=== PATIENT | male | born 1960 | race Caucasian/White ===

== ENCOUNTER 2020-10-03 19:03 | Emergency (ER) | payer OTHER, SELFPAY ==
[2020-10-03 19:10] VITALS: BP 172/100; PULSE 80; RESP 18; TEMP 37.2; O2SAT 98; BMI 30.5
--- NOTE | 2020-10-03 19:33 | DI.RAD.S_ITS ---
PROCEDURE: XR FOOT RT MIN 3V INDICATIONS: diabetic with wound on bottom of right foot. TECHNIQUE: 3 views of the foot were acquired. COMPARISON: None. FINDINGS: Bones: Extensive orthopedic hardware including the calcaneus, 5th metatarsal, and 1st metatarsal. No evidence of hardware failure or loosening. No plain film evidence of osteomyelitis. No fractures or dislocations. No suspicious bony lesions. Soft tissues: No tibiotalar joint effusion. Achilles tendon appears normal. IMPRESSION: No plain film evidence of osteomyelitis. No evidence of acute bony abnormality of the right foot. Dictated by: Kehinde Do M.D. on 10/03/2020 at 20:29 Approved by: Kehinde Do M.D. on 10/03/2020 at 20:30
== END 2020-10-03 20:46 | disposition left against medical advice (07) ==
PROVIDERS: Emergency Provider Emergency Medicine
DX: L98.9 Disorder of the skin and subcutaneous tissue, unspecified (principal)
CPT/HCPCS: 73630; 99281

== ENCOUNTER → 2021-12-15 12:24 | Outpatient (ROUT) | payer OTHER, SELFPAY ==
[2021-12-15 13:46] LABS: COVID19 -Nasal RAPID POSITIVE (Negative)
== END ==
PROVIDERS: Visit Provider Family Medicine
DX: U07.1 COVID-19 (principal)
CPT/HCPCS: 87635

== ENCOUNTER → 2022-05-15 12:23 | Outpatient (CLI) | payer OTHER, SELFPAY ==
--- NOTE | 2022-05-15 | DI.RAD.S_ITS ---
PROCEDURE: XR CHEST 2V INDICATIONS: COUGH TECHNIQUE: 2 views of the chest were acquired. COMPARISON: None. FINDINGS: Surgical changes and devices: None. Lungs and pleura: Lungs are clear considering body habitus and reduced inspiratory volume. No pleural effusions or pneumothorax. Mediastinum: Mediastinal contours are normal. Heart size is normal. Bones and chest wall: No suspicious bony abnormalities. Soft tissues appear unremarkable. IMPRESSION: Reduced inspiratory volume, no definite pneumonia or mass lesion seen. Dictated by: Juan Francisco Cuenca M.D. on 05/15/2022 at 13:16 Approved by: Juan Francisco Cuenca M.D. on 05/15/2022 at 13:16
== END ==
PROVIDERS: PCP Family Medicine; Referring Provider Family Medicine; Visit Provider Family Medicine
DX: R05.9 Cough, unspecified (principal)
CPT/HCPCS: 71046

== ENCOUNTER → 2023-06-16 08:49 | Outpatient (CLI) | payer OTHER, SELFPAY ==
--- NOTE | 2023-06-16 08:51 | DI.CT.S_ITS ---
PROCEDURE: CT KIDNEY URETER BLADDER (KUB) INDICATIONS: ACUTE R/SIDE LBP/MICROSCOPIC HEMATURIA TECHNIQUE: Axial sections were acquired from the lung bases to the pubic symphysis. Coronal and sagittal reformats were performed. For radiation dose reduction, the following was used: automated exposure control, adjustment of mA and/or kV according to patient size. COMPARISON: None. FINDINGS: Image quality: Diagnostic. Lower Chest: No significant findings. URINARY: Right Kidney: No stones or hydronephrosis. Right Ureter: No hydroureter. Left Kidney: No stones or hydronephrosis. Left Ureter: No hydroureter. Bladder: Two right lateral bladder wall diverticuli, the largest of which measures 11 x 4.8 cm with multiple dependent stones with Hounsfield unit of 283. Tiny fundal diverticulum Circumferential bladder wall thickening. ABDOMEN: Liver: No contour-deforming solid mass. Subcentimeter calcified granuloma in the left hepatic lobe. Gallbladder: Cholelithiasis without acute cholecystitis. Biliary ducts: No biliary dilation. Pancreas: No ductal dilation. Spleen: Size is within normal limits. Multiple subcentimeter calcified granulomas, likely sequela of prior granulomatous infection. Adrenal Glands: No adrenal nodules. Stomach and Bowel: No hiatal hernia. Stomach appears grossly normal. Small and large bowel is normal in caliber, without obstruction. Normal appendix (2/47). Sigmoid and scattered colonic diverticulosis, without diverticulitis. No pneumatosis, pneumoperitoneum or portal venous gas. Peritoneum: No abnormal intraperitoneal fluid. No free air. Ventral Wall: Tiny fat containing umbilical hernia. Abdominal Nodes: No enlarged retroperitoneal or mesenteric lymph nodes. Vessels: Aorta and inferior vena cava are normal in size. PELVIS: Pelvic Organs: Severe prostatomegaly measuring 7.2 cm. Pelvic Nodes: Unremarkable. Miscellaneous: No inguinal hernias are seen. Bones: No acute fractures. No aggressive appearing lytic or blastic osseous lesions. Mild multilevel degenerative changes of the spine. IMPRESSION: 1. Two right lateral bladder wall diverticuli and tiny fundal diverticulum, the largest of which measures 11 x 4.8 cm with multiple dependent stones. Recommend Urology consultation. 2. Severe prostatomegaly with circumferential bladder wall thickening, likely sequela of chronic bladder outlet obstruction. 3. No hydronephrosis or nephrolithiasis bilaterally. 4. Sigmoid and colonic diverticulosis, without diverticulitis. Dictated by: Pepito Hicks M.D. on 06/16/2023 at 11:37 Approved by: Pepito Hicks M.D. on 06/16/2023 at 11:49
== END ==
LOC: CT 08:50
PROVIDERS: PCP Family Medicine; Referring Provider Family Medicine; Visit Provider Family Medicine
DX: N32.3 Diverticulum of bladder (principal); R31.29 Other microscopic hematuria; K57.30 Diverticulosis of large intestine without perforation or abscess without bleeding; N40.0 Benign prostatic hyperplasia without lower urinary tract symptoms; E11.65 Type 2 diabetes mellitus with hyperglycemia; M54.50 Low back pain, unspecified
CPT/HCPCS: 74176

== ENCOUNTER 2023-09-26 13:05 | Emergency (ER) | payer OTHER, SELFPAY ==
[2023-09-26 13:27] VITALS: BP 217/101; PULSE 59; RESP 16; TEMP 37.3; O2SAT 98; BMI 30.9
--- NOTE | 2023-09-26 13:33 | DI.RAD.S_ITS ---
PROCEDURE: XR CHEST 1V INDICATIONS: chest pain TECHNIQUE: One view of the chest was acquired. COMPARISON: [facility], CR, XR CHEST 2V, 05/15/2022, 12:25. FINDINGS: Surgical changes and devices: None. Lungs and pleura: Lungs are clear. No pleural effusions or pneumothorax. Mediastinum: Mediastinal contours appear normal. Heart size is normal. Bones and chest wall: No suspicious bony lesions. Overlying soft tissues appear unremarkable. IMPRESSION: No acute cardiopulmonary abnormality is seen. Dictated by: Charles Ayala M.D. on 09/26/2023 at 12:59 Approved by: Charles Ayala M.D. on 09/26/2023 at 13:08
--- NOTE | 2023-09-26 13:43 | ED_ITS ---
HPI - Chest Pain General Chief Complaint: Chest Pain Stated Complaint: high bp Time Seen by Provider: 09/26/23 13:43 Source: patient Mode of arrival: Ambulatory Limitations: no limitations History of Present Illness HPI narrative: Patient 63-year-old male history of hypertension type 2 diabetes urinary retention and bladder stones presenting today with elevated blood pressure. He reports that they increased his lisinopril to twice a day not too long ago and he noticed his blood pressure started going up. Over the last 3 days he has had increasing shortness of breath with exertion. He denies any significant headache or chest pain. He reports he has a 20 point difference between his right arm and left arm in his blood pressures. He had no back pain. Left leg is swollen but always more swollen after multiple foot surgeries. Fever chills abdominal pain nausea or vomiting. Related Data Home Medications Medication Instructions Recorded Confirmed dulaglutide 3 mg/0.5 mL 3 mg SUBCUT 09/26/23 subcutaneous pen injector (Trulicity) lisinopril 10 mg tablet 10 mg PO DAILY 09/26/23 09/26/23 metformin 500 mg tablet,extended 500 mg PO BID 09/26/23 09/26/23 release 24 hr Allergies Allergy/AdvReac Type Severity Reaction Status Date / Time Sulfa (Sulfonamide AdvReac Gastrointestinal Verified 09/26/23 13:31 Antibiotics) Upset Patient History Medical History Diabetes High blood pressure Social History Smoking Status: Never smoker Smoking Status: Never smoker Substance Use Type: does not use Exam Initial Vital Signs Initial Vital Signs: Vital Signs Temperature 99.2 F 09/26/23 13:27 Pulse Rate 59 L 09/26/23 13:27 Respiratory Rate 16 09/26/23 13:27 Blood Pressure 217/101 H 09/26/23 13:27 Pulse Oximetry 98 09/26/23 13:27 Oxygen Delivery Method Room Air 09/26/23 13:27 GENERAL: Alert very pleasant 63-year-old male and in no acute distress. HEENT: Head atraumatic,EOMI, pupils reactive, face symmetric, moist mucous membranes CARDIOVASCULAR: Regular rate and rhythm without murmurs, rubs or gallops. RESPIRATORY: Breath sounds equal bilaterally, no wheezes rales or rhonchi. ABDOMEN: Soft, nontender. Normoactive bowel sounds all 4 quadrants. No guarding or rebound. EXTREMITIES: Normal range of motion, no clubbing. Left leg scar noted compression socks slightly more edematous +1 edema then Neurovascularly intact NEUROLOGICAL: Alert and oriented x4.Normal gait and speech. Cranial nerves II through XII grossly intact. SKIN: Warm, dry, no laceration, no petechiae, no rashes or lesions. Course Orders Ordered: ED Orders 09/26/23 13:33 XR chest 1V Stat EKG-12 Lead Stat 09/26/23 14:38 BNP [NT-proBNP (BNP-Adult 18+)] Stat Complete Blood Count AUTO DIFF Stat Comprehensive Metabolic Panel Stat D Dimer Stat Lipase Stat Troponin & CK Cardiac Panel Stat Vital Signs Vital signs: Vital Signs - 8 hr 09/26/23 13:27 09/26/23 14:30 09/26/23 14:31 Temperature 99.2 F Pulse Rate 59 L 61 Respiratory Rate 16 12 Blood Pressure 217/101 H 195/91 H Pulse Oximetry 98 96 Oxygen Delivery Method Room Air 09/26/23 14:31 09/26/23 15:00 09/26/23 15:00 Temperature Pulse Rate 69 52 L Respiratory Rate 20 14 Blood Pressure 193/89 H Pulse Oximetry 96 97 Oxygen Delivery Method Room Air 09/26/23 15:30 09/26/23 15:30 09/26/23 15:49 Temperature Pulse Rate 66 52 L Respiratory Rate 24 15 Blood Pressure 216/116 H Pulse Oximetry Oxygen Delivery Method 09/26/23 15:49 Temperature Pulse Rate Respiratory Rate Blood Pressure 235/107 H Pulse Oximetry Oxygen Delivery Method MDM - Chest Pain Lab Data 09/26/23 14:38 09/26/23 14:38 Labs: Lab Results 09/26/23 Range/Units 14:38 WBC 6.8 (4.5-11.0) X10^3/uL RBC 5.01 (4.5-5.9) X10^6/uL Hgb 13.9 (13.5-17.5) g/dL Hct 41.9 (41-53) % MCV 83.6 (80-100) fL MCH 27.7 (26-34) PG MCHC 33.1 (30-36) % RDW 16.1 H (11.6-14.8) % Plt Count 400 (150-400) X10^3/uL Neut % (Auto) 72.6 (50-75) % Lymph % (Auto) 20.0 L (25-40) % Dod[place]idge % (Auto) 5.2 (3-14) % Eos % (Auto) 1.5 L (2-4) % Baso % (Auto) 0.7 (0-2) % Neut # (Auto) 5000 (6563-0617) /uL Lymph # (Auto) 1400 (3619-2681) /uL Dod[place]idge # (Auto) 400 (0-900) /uL Eos # (Auto) 100 (0-450) /uL Baso # (Auto) 0 (0-100) /uL D-Dimer 597 H (<500) ng/ml Sodium 140 (137-145) mmol/L Potassium 5.1 (3.4-5.1) mmol/L Chloride 108 H (98-107) mmol/L Carbon Dioxide 25 (22-32) mmol/L BUN 35 H (9-20) mg/dL Creatinine 1.19 (0.66-1.25) mg/dL Estimated GFR > 60 (>60) mL/min BUN/Creatinine Ratio 29.4 H (6-22) Glucose 134 H (80-110) mg/dL Calcium 9.8 (8.4-10.2) mg/dL Total Bilirubin 0.7 (0.2-1.3) mg/dL AST 33 (17-59) IU/L ALT 27 (<50) IU/L Alkaline Phosphatase 82 (38-126) U/L Total Creatine Kinase 193 H (55-170) U/L Troponin I < 0.012 (0.01-0.034) ng/mL NT-Pro-B Natriuret Pep 78 (<125) pg/mL Total Protein 7.7 (6.3-8.2) g/dL Albumin 4.4 (3.5-5.0) g/dL Globulin 3.3 (1.7-4.1) g/dL Albumin/Globulin Ratio 1.3 (1.0-2.8) Lipase 301 H (23-300) U/L Imaging Data Chest x-ray: Radiologist's Impression: PROCEDURE: XR CHEST 1V INDICATIONS: chest pain TECHNIQUE: One view of the chest was acquired. COMPARISON: [facility], CR, XR CHEST 2V, 05/15/2022, 12:25. FINDINGS: Surgical changes and devices: None. Lungs and pleura: Lungs are clear. No pleural effusions or pneumothorax. Mediastinum: Mediastinal contours appear normal. Heart size is normal. Bones and chest wall: No suspicious bony lesions. Overlying soft tissues appear unremarkable. IMPRESSION: No acute cardiopulmonary abnormality is seen. Dictated by: Charles Ayala M.D. on 09/26/2023 at 12:59 Approved by: Cahrles Ayala M.D. on 09/26/2023 at 13:08 ECG Data Attestation: I personally reviewed and interpreted this ECG as follows: Prior ECG tracings: not available for review Interpretation: Normal sinus rhythm rate 50 AL interval 150 QRS [address] changes no T- wave inversions no Q-waves MDM Narrative Medical decision making narrative: Patient 63-year-old male history of hypertension presenting today with elevated blood pressure and increasing shortness of breath. He is noted to have pretty pressure here. He reports difference blood pressure in his arms but is not having any sort back pain or chest pain. Blood work has been reviewed he has no evidence of end-organ damage, no anemia TON or electrolyte abnormality has a negative troponin. D-dimer is noted to be 597. BNP is 78. Chest x-ray has been reviewed no acute cardiopulmonary process EKG no acute cardiopulmonary process sinus bradycardia heart rate 50 no priors to compare Patient reports that he does have low heart rate and is relatively asymptomatic. He has not having any chest pain or shortness of breath here in the ED he was mostly worried about his blood pressure which continues to be elevated. At this time I encouraged him to follow-up with PCP monitor blood pressure at home he will likely need further medication. D-dimer was noted to be slightly elevated 597 it does correct with age she has not hypoxic or tachycardic really think unlikely to be a pulmonary embolism. Also dissection was considered however without significant back pain or chest pain I would think unlikely. Discharge Plan Departure Patient Disposition: Home Clinical Impression: Hypertension Instructions: High Blood Pressure Activity Restrictions/Additional Instructions: *You have been diagnosed with hypertension *What to do: At this time please monitor blood pressure at home. I suspect that you will need further blood pressure medication. *Continue to take medications as directed *Follow up with your primary care provider in 2-3 days or call [phone] *Return to ER if you should have increasing chest pain shortness of breath weakness or any new, worsening or concerning symptoms Prescriptions: No Action lisinopril 10 mg tablet 10 mg PO DAILY metformin 500 mg tablet extended release 24 hr 500 mg PO BID Trulicity 3 mg/0.5 mL pen injector 3 mg SUBCUT Referrals: Servando Estevez MD [Primary Care Provider] - Stand Alone Forms: Patient Portal/API
[2023-09-26 14:30] VITALS: PULSE 61; RESP 12; O2SAT 96
[2023-09-26 14:31] VITALS: BP 195/91; PULSE 69; RESP 20; O2SAT 96
[2023-09-26 14:48] LABS: Add Manual Diff / Slide Review NO; Basophils Absolute Auto 0 /uL (0-100); Basophils Percent Auto 0.7 % (0-2); Eosinophils Absolute Auto 100 /uL (0-450); Eosinophils Percent Auto 1.5 % (2-4); Hematocrit 41.9 % (41-53); Hemoglobin 13.9 g/dL (13.5-17.5); Lymphocytes Absolute Auto 1400 /uL (1100-4500); Mean Corpuscular HGB Conc 33.1 % (30-36); Mean Corpuscular Hemoglobin 27.7 PG (26-34); Mean Corpuscular Volume 83.6 fL (80-100); Monocytes Absolute Auto 400 /uL (0-900); Monocytes Percent Auto 5.2 % (3-14); Neutrophils Absolute Auto 5000 /uL (1500-7000); Neutrophils Percent Auto 72.6 % (50-75); Platelet Count 400 X10^3/uL (150-400); Red Blood Cell Count 5.01 X10^6/uL (4.5-5.9); Red Cell Distribution Width 16.1 % (11.6-14.8); White Blood Cell Count 6.8 X10^3/uL (4.5-11.0)
[2023-09-26 14:59] LABS: D Dimer 597 ng/ml (<500)
[2023-09-26 15:00] VITALS: BP 193/89; PULSE 52; RESP 14; O2SAT 97
[2023-09-26 15:06] LABS: Alanine Aminotransferase 27 IU/L (<50); Albumin 4.4 g/dL (3.5-5.0); Albumin Globulin Ratio 1.3 (1.0-2.8); Alkaline Phosphatase 82 U/L (38-126); BUN Creatinine Ratio 29.4 (6-22); Bilirubin Total 0.7 mg/dL (0.2-1.3); Blood Urea Nitrogen 35 mg/dL (9-20); Calcium 9.8 mg/dL (8.4-10.2); Carbon Dioxide 25 mmol/L (22-32); Chloride 108 mmol/L (98-107); Creatine Kinase 193 U/L (55-170); Estimated Glomerular Filt Rate > 60 mL/min (>60); Globulin 3.3 g/dL (1.7-4.1); Glucose 134 mg/dL (80-110); Lipase 301 U/L (23-300); Potassium 5.1 mmol/L (3.4-5.1); Sodium 140 mmol/L (137-145); Total Protein 7.7 g/dL (6.3-8.2)
[2023-09-26 15:08] LABS: Aspartate Aminotransferase 33 IU/L (17-59); HEMOLYSIS 54 (0-50)
[2023-09-26 15:15] LABS: NT-proBNP (BNP-Adult 18+) 78 pg/mL (<125)
[2023-09-26 15:18] LABS: Troponin I < 0.012 ng/mL (0.01-0.034)
[2023-09-26 15:30] VITALS: BP 216/116; PULSE 66; RESP 24
[2023-09-26 15:49] VITALS: BP 235/107; PULSE 52; RESP 15
== END 2023-09-26 15:56 | disposition home or self-care (01) ==
PROVIDERS: Emergency Provider Emergency Medicine; PCP Family Medicine
DX: I10 Essential (primary) hypertension (principal); R06.02 Shortness of breath; R00.1 Bradycardia, unspecified
CPT/HCPCS: 36415; 71045; 80053; 82550; 83690; 83880; 84484; 85025; 85379; 93005; 99283; 99284

== ENCOUNTER → 2025-02-09 11:08 | Outpatient (CLI) | payer OTHER, SELFPAY ==
--- NOTE | 2025-02-09 11:11 | DI.RAD.S_ITS ---
PROCEDURE: XR FOOT LT MIN 3V INDICATIONS: Stepped on everett nail-mid 5th metatarsal TECHNIQUE: 3 views of the foot were acquired. COMPARISON: [facility], CR, XR FOOT 3+ VIEWS LEFT, 02/18/2023, 14:58. [facility], CR, XR FOOT RT MIN 3V, 10/03/2020, 19:52. FINDINGS: Tendon anchor at the base of the 5th metatarsal and calcaneus new from prior. Barbara in the base of the 1st metatarsal, unchanged. Diffuse sclerosis of the 4th and 5th metatarsal bases similar to prior. No acute bone erosion or fracture. Subtalar arthrodesis with 2 calcaneal screws. Interval revision of calcaneal fixation. Diffuse sclerosis of the calcaneus new from prior examination. No metallic foreign body in the soft tissue. Small calcification at the plantar midfoot may be dystrophic. No soft tissue gas. Diffuse soft tissue swelling. IMPRESSION: No metallic foreign body. Dictated by: Maxwell Chisholm M.D. on 02/09/2025 at 13:31 Approved by: Maxwell Chisholm M.D. on 02/09/2025 at 13:33
== END ==
PROVIDERS: PCP Family Medicine; Referring Provider Nurse Practitioner Family; Visit Provider Nurse Practitioner Family
DX: T14.8XXA Other injury of unspecified body region, initial encounter (principal); M79.89 Other specified soft tissue disorders; W45.0XXA Nail entering through skin, initial encounter
CPT/HCPCS: 73630